=== PATIENT | male | born 1950 | race Caucasian/White ===

== ENCOUNTER 2017-03-13 09:12 | Day surgery (SDC) | payer OTHER ==
[2017-03-13] MEDS ORDERED: TETRACAINE 0.5% OPHTH 1 DOSE AFFEYE ONE (09:15)
[2017-03-13] MEDS ORDERED: VIGAMOX 0.5% OPHTH 1 DOSE AFFEYE ONE ×4 (09:20→11:52)
[2017-03-13] MEDS ORDERED: NS 500 ML IV 500 ML IV ONE (09:30)
[2017-03-13] MEDS ORDERED: PROLENSA OPHTH 1 DOSE AFFEYE ONE (09:31)
[2017-03-13] MEDS ORDERED: ALPHAGAN-P OPHTH 1 DOSE AFFEYE ONE (09:32)
[2017-03-13] MEDS ORDERED: CYCLOGYL 1% OPHTH 1 DOSE OP ONE ×3 (09:33→09:35)
[2017-03-13] MEDS ORDERED: AK-DILATE 2.5% OPHTH 1 DOSE OP ONE ×3 (09:33→09:35)
[2017-03-13] MEDS ORDERED: MYDRIACIL OPHTH 1 DOSE AFFEYE ONE ×3 (09:33→09:35)
[2017-03-13] MEDS ORDERED: TETRACAINE HCL AFFEYE ONE (11:32)
[2017-03-13] MEDS ORDERED: BETADINE OPHTH SOLN 5% EACHEYE ONE (11:32)
[2017-03-13 15:24] VITALS: BP 146/80
[2017-03-13] MEDS ORDERED: DIPRIVAN VIAL ONE (15:37)
== END 2017-03-13 12:15 | disposition home or self-care (01) ==
LOC: SURG1 09:12
PROVIDERS: ATTEND Ophthalmology
PROC: 08U107Z Supplement of Left Eye with Autologous Tissue Substitute, Open Approach (ICD-10-PCS; principal; 2017-03-13 16:30)
PROC: 08BTXZX Excision of Left Conjunctiva, External Approach, Diagnostic (ICD-10-PCS; principal; 2017-03-13 16:30)
DX: H11.002 Unspecified pterygium of left eye (principal)
CPT/HCPCS: A4217; J3490

== ENCOUNTER 2017-03-27 08:42 | Day surgery (SDC) | payer OTHER ==
[2017-03-27] MEDS ORDERED: NS 500 ML IV 500 ML IV ONE (09:35)
[2017-03-27] MEDS ORDERED: VERSED ONE (10:38)
[2017-03-27] MEDS ORDERED: DIPRIVAN VIAL ONE (10:38)
[2017-03-27] MEDS ORDERED: TETRACAINE HCL AFFEYE ONE (12:42)
[2017-03-27] MEDS ORDERED: BETADINE OPHTH SOLN 5% EACHEYE ONE (12:42)
[2017-03-27] MEDS ORDERED: KETALAR ONE (12:58)
[2017-03-27] MEDS ORDERED: KENALOG INJ 40 MG ONE (13:01)
[2017-03-27] MEDS ORDERED: VIGAMOX 0.5% OPHTH 1 DOSE AFFEYE ONE (13:03)
[2017-03-27 13:41] VITALS: BP 124/76
== END 2017-03-27 13:30 | disposition home or self-care (01) ==
LOC: SURG1 08:42
PROVIDERS: ATTEND Ophthalmology
PROC: 08U007Z Supplement of Right Eye with Autologous Tissue Substitute, Open Approach (ICD-10-PCS; principal; 2017-03-27 15:45)
PROC: 08BSXZX Excision of Right Conjunctiva, External Approach, Diagnostic (ICD-10-PCS; principal; 2017-03-27 15:45)
DX: H11.001 Unspecified pterygium of right eye (principal)
CPT/HCPCS: A4217; J2250; J3301; J3490